=== PATIENT | female | born 1985 ===

== ENCOUNTER 2018-12-16 13:05 | Outpatient (RCR) | payer BC ==
[2018-11-25] MEDS: IRON SUCROSE 200 MG/10 ML (VENOFER) VIAL IV SCH (13:30)
[2018-11-25 13:52] VITALS: BP 105/76
[2018-12-02] MEDS: IRON SUCROSE 200 MG/10 ML (VENOFER) VIAL IV SCH (13:10)
[2018-12-02 13:30] VITALS: BP 117/84
[2018-12-09 13:13] VITALS: BP 111/75
[2018-12-09] MEDS: IRON SUCROSE 200 MG/10 ML (VENOFER) VIAL IV SCH (13:13)
[~2018-12-16] VITALS: Ht 162.6 cm; Wt 70.5 kg
[~2018-12-16 13:05] MED LIST: CIPR500T4 PO; CYCL10TA9 PO; HYDR-4226 PO; HYDR1TAB PO; IBUP-1773 PO; IRON SUCROSE 200 MG/10 ML (VENOFER) VIAL IV ONE; NITR-65 PO; ONDA-42 PO; PREN1TAB39 PO; SULF1TAB35 PO
[2018-12-16] MEDS: IRON SUCROSE 200 MG/10 ML (VENOFER) VIAL IV SCH (13:10)
[2018-12-16 13:36] VITALS: BP 100/69
== END 2018-12-16 13:36 | disposition home or self-care (01) ==
LOC: SDC 13:05
PROVIDERS: ATTEND Family Medicine
DX: D50.8 Other iron deficiency anemias (principal); R53.83 Other fatigue
CPT/HCPCS: 96365

== ENCOUNTER 2022-12-27 11:28 | Outpatient (RCR) | payer BC ==
[~2022-12-27 11:28] MED LIST changes: -CIPR500T4 PO; +CIPR500T5 PO; +CYCL10TA25 PO; -CYCL10TA9 PO; -IRON SUCROSE 200 MG/10 ML (VENOFER) VIAL IV ONE; -SULF1TAB35 PO; +SULF1TAB38 PO
[2022-12-27] MEDS ORDERED: IRON SUCROSE 200 MG/10 ML (VENOFER) VIAL IV SCH (12:00)
[2022-12-27 13:30] VITALS: BP 115/60
== END 2022-12-28 | disposition home or self-care (01) ==
LOC: SDC 11:28
PROVIDERS: ATTEND Family Medicine
DX: D50.8 Other iron deficiency anemias (principal); R53.83 Other fatigue
CPT/HCPCS: 96365

== ENCOUNTER 2023-01-17 11:32 | Outpatient (RCR) | payer BC ==
[2023-01-03 11:55] VITALS: BP 92/62
[2023-01-03] MEDS: IRON SUCROSE 200 MG/10 ML (VENOFER) VIAL IV SCH (14:05)
[2023-01-10] MEDS: IRON SUCROSE 200 MG/10 ML (VENOFER) VIAL IV SCH (11:58)
[2023-01-10 12:02] VITALS: BP 96/71
[~2023-01-17 11:32] MED LIST changes: +IRON SUCROSE 200 MG/10 ML (VENOFER) VIAL IV ONE
[2023-01-17 11:40] VITALS: BP 98/61
[2023-01-17] MEDS: IRON SUCROSE 200 MG/10 ML (VENOFER) VIAL IV SCH (11:44)
== END 2023-01-27 | disposition home or self-care (01) ==
LOC: SDC 11:32
PROVIDERS: ATTEND Family Medicine
DX: D50.8 Other iron deficiency anemias (principal)
CPT/HCPCS: 96365